=== PATIENT | female | born 1955 | race African-American/Black ===

== ENCOUNTER 2018-07-11 09:02 | Emergency (ER) | payer OTHER ==
[~2018-07-11] VITALS: Ht 167.6 cm; Wt 95.3 kg
[2018-07-11] MEDS ORDERED: MAXZIDE-25 MG1 EACH PO (09:17)
[2018-07-11] MEDS ORDERED: COZAAR 25 MG TA25 M1 PO (09:17)
[2018-07-11 09:19] LABS: URINE BILIRUBIN NEGATIVE (Negative); URINE BLOOD 2+ (Negative); URINE CLARITY CLEAR; URINE COLOR YELLOW; URINE GLUCOSE-RANDOM* NEGATIVE (Negative); URINE KETONES NEGATIVE (Negative); URINE LEUKOCYTES-REFLEX NEGATIVE (Negative); URINE NITRITE-REFLEX NEGATIVE (Negative); URINE PROTEIN (DIPSTICK) NEGATIVE (Negative); URINE SPECIFIC GRAVITY <= 1.005 (1.005-1.035); URINE UROBILINOGEN 0.2 E.U./dl (0.2-1.0)
[2018-07-11 09:30] LABS: SQUAMOUS 4-10 Moderate /LPF (0-3)
[2018-07-11 09:31] LABS: BACTERIA-REFLEX 1-9 Few /HPF (None Seen); CASTS None Seen /LPF (None Seen); CRYSTALS None Seen /LPF (None Seen); URINE RBC 0-2 Rare /HPF (0-2); URINE WBC-REFLEX None Seen /HPF (0-5)
[2018-07-11 09:59] LABS: ABSOLUTE NEUTROPHILS 4.2 thou/uL (1.4-8.2); BASOPHILS 0.7 % (0.0-2.0); EOSINOPHILS 0.1 % (0.0-3.0); HEMATOCRIT 38.5 % (37.0-47.0); HEMOGLOBIN 12.7 gm/dL (12.0-15.0); LYMPHOCYTES 30.7 % (24.0-44.0); MCH 28.2 pg (26.0-34.0); MCHC 33.1 g/dL (28.0-37.0); MCV 85.2 fL (80.0-100.0); MONOCYTES 5.9 % (1.0-8.0); PLATELET COUNT 249 thou/uL (150-400); POLYS 62.6 % (36.0-66.0); RBC 4.52 mil/uL (4.20-5.00); WBC 6.8 thou/uL (4.0-11.0)
[2018-07-11 10:17] LABS: ALBUMIN 2.4 g/dL (3.4-5.0); CREATININE 0.5 mg/dL (0.6-1.0); TOTAL BILIRUBIN 0.2 mg/dL (<0.1-1.0); TOTAL PROTEIN 4.7 g/dL (6.4-8.2)
[2018-07-11 10:21] LABS: POTASSIUM 1.9 mmol/L (3.5-5.1)
[2018-07-11 11:02] LABS: CREATININE 0.9 mg/dL (0.6-1.0); MAGNESIUM 1.8 mg/dL (1.8-2.4)
[2018-07-11 11:03] LABS: CALCIUM 9.5 mg/dL (8.5-10.1)
[2018-07-11] MEDS ORDERED: POTASSIUM20 PO (11:08)
[2018-07-11] MEDS ORDERED: NORCO 5-325 TA1 EACH PO (11:08)
[2018-07-11] MEDS ORDERED: BACTRIM DS TAB1 EACH PO (11:08)
[2018-07-11 11:40] VITALS: BP 125/61
--- NOTE | 2018-07-12 10:41 | EKG ---
[place] [address] [facility] [employer] [place] [address] ELECTROCARDIOGRAM REPORT Name: DAYSI THOMAS Room [facility]: [facility] [id number] ������������������ Admission: 07/11/18 ������������������ Attend Phys: Discharge: 07/11/18 ������������������ Date of : 55 Report #: [id number] ����������������������������������������������������������������� [id number] THIS REPORT FOR: //name// [facility] ED Test Date: 2018-07-11 Test Time: 10:07:52 Pat Name: DAYSI THOMAS Department: Room: Gender: F [employer]ating Machine Operator: : 1955 Requested By: Geri Francis Order Number: [id number] MD: Josue Johnson Measurements Intervals Emerson Rate: 60 P: 44 CT: 141 QRS: 26 QRSD: 90 T: 31 QT: 439 QTc: 439 Interpretive Statements Sinus rhythm left atrial enlargement Nonspecific ST-T wave changes No previous ECG available for comparison Electronically Signed On 07-12-2018 10:41:35 [employer] by Josue Johnson [email or web address] ��������������������������������������������� <ELECTRONICALLY SIGNED> ���������������������������������������� By: Josue Johnson MD ��������������������������������������������� 07/12/18 1041 1007 Jayesh Johnson MD /CELINA
== END 2018-07-11 11:41 | disposition home or self-care (01) ==
LOC: ER 09:02
PROVIDERS: Physician Assistant; Student in an Organized Health Care Education/Training Program
DX: N39.0 Urinary tract infection, site not specified (principal); E87.6 Hypokalemia; R11.2 Nausea with vomiting, unspecified; I10 Essential (primary) hypertension; F17.210 Nicotine dependence, cigarettes, uncomplicated